=== PATIENT | female | born 1990 | race Caucasian/White ===

== ENCOUNTER 2017-08-27 10:30 | Emergency (ER) | payer SELFPAY ==
[~2017-08-27] VITALS: Ht 165.1 cm; Wt 46.3 kg
[~2017-08-27 10:30] MED LIST: AC325T PO; ALB0.5V INH; ALBU17AE23 IH; AZIT-21 PO; AZIT1PAC8 PO; BENZ100C18 PO; CLC500CT PO; DCS100C PO; DIPH50CA33 PO; DOXY-13; FRS325T PO; HYDR1TAB PO; IBP600T1 PO; METH4TAB PO; MULT-241 PO; NAPR-243 PO; PRCD5U PO; PRD20T PO; PREN1TAB39 PO; SLMFT1E INH; SULF1TAB38 PO; TRAM-21
[2017-08-27] MEDS ORDERED: D-ME118S33 PO (11:05)
--- NOTE | 2017-08-27 11:05 | ED General ---
General Chief Complaint: Cough/Cold/Flu Symptoms Stated Complaint: FEVER,CHILLS,LAMB,COUGH Source of Information: Patient Exam Limitations: No Limitations History of Present Illness Date Seen by Provider: Aug 27, 2017 Time Seen by Provider: 11:02 Initial Comments Ambulatory to ER with fever, chills, headache, cough, body aches 4 days. Timing/Duration: 3-4 Days Severity: Moderate Associated Systoms: Cough, Fever/Chills, Headaches, Malaise Allergies and Home Medications Allergies Coded Allergies: Penicillins (Verified Allergy, Unknown, RASH, 09/01/07) Sulfa (Sulfonamide Antibiotics) (Verified Allergy, Unknown, HIVES, 12/22/14 ) Home Medications Naproxen 500 Mg Tablet, 1 EACH PO BID PRN for PAIN, #20 Ref 0 FOR PAIN Prescribed by: JACKY GRANADOS on 12/22/14 1220 Constitutional: see HPI, chills, fever, malaise EENTM: see HPI Respiratory: see HPI, cough Cardiovascular: no symptoms reported Genitourinary: no symptoms reported Musculoskeletal: no symptoms reported Skin: no symptoms reported Psychiatric/Neurological: No Symptoms Reported Past Xkoupla-Hmszzf-Adbmso Hx Patient Social History Recent Foreign Travel: No Contact w/Someone Who Travel: No Seasonal Allergies Seasonal Allergies: Yes Respiratory Respiratory Disorders: Asthma Reproductive System Hx Reproductive Disorders: No Musculoskeletal Musculoskeletal Disorders: Chronic Back Pain Family Medical History Significant Family History: No Pertinent Family Hx Physical Exam Vital Signs Capillary Refill : General Appearance: No Apparent Distress, WD/WN, Thin, Other (multiple eroded teeth down to the gums,) Eyes: Bilateral Eye Normal Inspection, Bilateral Eye PERRL HEENT: PERRL/EOMI, TMs Normal, Normal ENT Inspection Neck: Full Range of Motion, Normal Inspection Respiratory: Normal Breath Sounds, No Accessory Muscle Use, No Respiratory Distress, Other (lungs are clear and there is no respiratory distress) Cardiovascular: Normal Peripheral Pulses, Tachycardia (she is tachycardic at 130 regular, however, blood pressure is adequate at 130/86 and she is febrile) Gastrointestinal: Normal Bowel Sounds, Non Tender, Soft Extremity: Normal Capillary Refill, Normal Inspection Neurologic/Psychiatric: Alert, Oriented x3, No Motor/Sensory Deficits Progress/Results/Core Measures Suspected Sepsis SIRS Temperature: Pulse: Respiratory Rate: Blood Pressure / Mean: Results/Orders My Orders Orders - AMOL NAZARIO APRN Ibuprofen Tablet (Motrin Tablet) (08/27/17 11:15) Vital Signs/I&O Capillary Refill : Departure Impression Impression: Primary Impression: Influenza Disposition: 01 HOME, SELF-CARE Condition: Stable Departure-Patient Inst. Decision time for Depature: 11:04 Referrals: NO,LOCAL PHYSICIAN (PCP/Family) Primary Care Physician Patient Instructions: Flu Add. Discharge Instructions: 1. Tylenol and Motrin for fevers 2. Return to ER for any worsening symptoms, shortness of breath or any other concerns 3. Follow-up with her doctor within 48 hours for recheck Scripts D-Methorphan Hb/P-Epd HCl/Bpm (Bromfed Dm Cough Syrup) 118 Ml Syrup 5 ML PO Q6H, #120 ML Prov: AMOL NAZARIO APRN 08/27/17 AMOL NAZARIO APRN Aug 27, 2017 11:05
[2017-08-27] MEDS ORDERED: IBUPROFEN 800 MG (MOTRIN) TAB PO ONE (11:15)
[2017-08-27 11:18] VITALS: BP 115/74
--- OUTSIDE RECORDS SUMMARY | 2017-08-28 14:52 | XMS REPORT | Continuity of Care Document ---
Author Author [facility] Organization [facility] Address Unknown Phone Unavailable Allergies Active Description Code Type Severity Reaction Onset Reported/Identified Relationship to Patient Clinical Status Yes Penicillins [id number] Drug Allergy Unknown RASH 09/01/2007 Yes Sulfa (Sulfonamide Antibiotics) [id number] Drug Allergy Unknown HIVES 12/22 Medications There is no data. Problems Date Dx Coded Attending Type Code Diagnosis Diagnosed By 03/15/2011 Ot 682.2 08/21/2011 Ot 305.20 08/21/2011 Ot 465.9 08/21/2011 Ot 493.92 08/21/2011 Ot 599.0 08/21/2011 Ot 646.63 08/21/2011 Ot 648.43 08/21/2011 Ot 648.93 08/21/2011 Ot 649.03 12/15/2011 Ot 644.13 12/18/2011 Ot 285.1 12/18/2011 Ot 285.9 12/18/2011 Ot 493.90 12/18/2011 Ot 648.21 12/18/2011 Ot 648.22 12/18/2011 Ot 648.91 12/18/2011 Ot 649.01 12/18/2011 Ot V02.51 12/18/2011 Ot V27.0 04/20/2012 Ot 708.0 Procedures There is no data. Results There is no data. Encounters ACCT No. Visit Date/Time Discharge Status Pt. Type Provider Facility Loc./Unit Complaint [id number] 12/22/2014 11:43:00 12/22/2014 12:46:00 DIS Emergency JACKY HU [facility] ER [id number] 11/16/2012 13:41:00 11/16/2012 23:59:59 CLS Outpatient [id number] 12/22/2014 11:44:00 Document Registration [id number] 12/22/2014 11:44:00 Document Registration [id number] 04/20/2012 15:33:00 Document Registration [id number] 12/15/2011 01:48:00 Document Registration [id number] 08/21/2011 04:20:00 Document Registration [id number] 03/15/2011 10:37:00 Document Registration
--- OUTSIDE RECORDS SUMMARY | 2017-08-28 14:52 | XMS REPORT | Clinical Summary ---
Author Author [facility] Organization [facility] Address Unknown Phone Unavailable Care Team Providers Care Biological Science Technician Fish Name Role Phone Self, Referral PCP Unavailable Leora Franco RN Unavailable Unavailable Source Comments Some departments are not documenting in the electronic medical record. If you do not see the information that you expected, contact Release of Information in the Health Information Management department at [phone] for further assistance in locating additional records.[facility] Allergies Active Allergy Reactions Severity Noted Date Comments Penicillins 10/31/2007 Current Medications Prescription Sig. Disp. Refills Start End Date Status Date hydrocodone-ibuprofen Active (VICOPROFEN) 5-200 mg per tablet Active Problems Not on file Social History Tobacco Use Types Packs/Day Years Used Date Current Every Day Smoker 0.5 7.0 Alcohol Use Drinks/Week oz/Week Comments No Sex Assigned at Date Recorded Not on file Last Filed Vital Signs Vital Sign Reading Time Taken Blood Pressure 119/54 10/31/2007 3:09 PM CDT Pulse 68 10/31/2007 3:09 PM CDT Temperature 37.1 C (98.8 F) 10/31/2007 3:09 PM CDT Respiratory Rate - - Oxygen Saturation 98% 10/31/2007 3:09 PM CDT Inhaled Oxygen - - Concentration Weight - - Height - - Body Mass Index - - Plan of Treatment Health Maintenance Due Date Last Done Comments PHYSICAL (COMPREHENSIVE) 1996 EXAM PERTUSSIS VACCINE 2000 TETANUS VACCINE 2006 CERVICAL CANCER SCREENING 2010 INFLUENZA VACCINE 02/10/2017 HPV VACCINES Aged Out No longer eligible based on patient's age to complete this topic Results Not on filefrom Last 3 Months
== END 2017-08-27 11:18 | disposition home or self-care (01) ==
LOC: EDUNIT# 10:30 → ER 10:33
DX: J11.1 Influenza due to unidentified influenza virus with other respiratory manifestations (principal); J45.909 Unspecified asthma, uncomplicated; Z88.0 Allergy status to penicillin; Z88.2 Allergy status to sulfonamides
CPT/HCPCS: 99283

== ENCOUNTER 2019-05-21 07:56 | Inpatient (IN) | payer SELFPAY ==
[~2019-05-21] VITALS: Ht 165.1 cm; Wt 51.4 kg
[~2019-05-21 07:56] MED LIST changes: +D-ME118S33 PO
[2019-05-21] MEDS ORDERED: LACTATED RINGERS 1,000 ML IV ONE ×3 (08:50→08:54)
[2019-05-21 09:06] LABS: BASOPHILS % (AUTO) 0 % (0-10); EOSINOPHILS # (AUTO) 0.2 10^3/uL (0.0-0.3); EOSINOPHILS % (AUTO) 1 % (0-10); HEMATOCRIT 36 % (35-52); HEMOGLOBIN 12.1 G/DL (11.5-16.0); LYMPHOCYTES # (AUTO) 0.9 X 10^3 (1.0-4.0); LYMPHOCYTES % (AUTO) 4 % (12-44); MEAN CORPUSCULAR HEMOGLOBIN 29 PG (25-34); MEAN CORPUSCULAR HGB CONC 33 G/DL (32-36); MEAN CORPUSCULAR VOLUME 86 FL (80-99); MEAN PLATELET VOLUME 9.8 FL (7.4-10.4); MONOCYTES # (AUTO) 0.8 X 10^3 (0.0-1.0); MONOCYTES % (AUTO) 3 % (0-12); NEUTROPHILS # (AUTO) 22.7 X 10^3 (1.8-7.8); NEUTROPHILS % (AUTO) 92 % (42-75); PLATELET COUNT 218 10^3/uL (130-400); RED CELL DISTRIBUTION WIDTH 12.7 % (10.0-14.5); WHITE BLOOD COUNT 24.6 10^3/uL (4.3-11.0)
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
[2019-05-21 09:21] LABS: ALANINE AMINOTRANSFERASE 31 U/L (0-55); ALBUMIN 3.6 GM/DL (3.2-4.5); ALKALINE PHOSPHATASE 78 U/L (40-136); BILIRUBIN,TOTAL 0.4 MG/DL (0.1-1.0); BUN/CREATININE RATIO 14; CALCIUM 8.8 MG/DL (8.5-10.1); CARBON DIOXIDE 23 MMOL/L (21-32); CHLORIDE 101 MMOL/L (98-107); CREATININE SERUM 0.81 MG/DL (0.60-1.30); GFR ESTIMATED > 60; GLUCOSE 117 MG/DL (70-105); POTASSIUM 3.1 MMOL/L (3.6-5.0); SODIUM 135 MMOL/L (135-145); TOTAL PROTEIN 6.1 GM/DL (6.4-8.2)
[2019-05-21 09:22] LABS: INR 1.5 (0.8-1.4); PROTHROMBIN TIME PATIENT 18.8 SEC (12.2-14.7)
[2019-05-21 09:59] LABS: BAND NEUTROPHILS 5 %; LYMPHOCYTES % (MANUAL) 7 %; MONOCYTES % (MANUAL) 2 %; NEUTROPHILS % (MANUAL) 84 %; RBC MORPH NORMAL; REACTIVE LYMPHOCYTES 2 %
[2019-05-21] MEDS ORDERED: NS 100 ML (IVPB) BAG IV ONE (10:00)
[2019-05-21] MEDS ORDERED: IOHEXOL 350 MG/ML 100 ML (OMNIPAQUE 350) VIAL IV ONE (10:00)
[2019-05-21] MEDS ORDERED: CATHETER FLUSH 10 ML SYR IV PRN (10:00)
[2019-05-21] MEDS ORDERED: HOLD METFORMIN - RECEIVED CONTRAST 20 ML VIAL IV SCH (10:00)
--- NOTE | 2019-05-21 10:02 | Diagnostic Imaging Report ---
INDICATION: Cough, right lung pain. TECHNIQUE: Two view chest 9:35 AM CORRELATION STUDY: 01/09/2009 FINDINGS: The heart size, mediastinal configuration and pulmonary vasculature are within normal limits. There is rather extensive consolidation at the basilar aspect of the right upper lobe most compatible with pneumonia. There is a slightly rounded density at the apex of this consolidation centrally. The remaining lung [place] relatively clear. Leftward curvature and/or rotation thoracic spine. IMPRESSION: 1. Significant consolidation at the basilar right upper lobe, most suggestive for pneumonia. Follow-up imaging to complete resolution is recommended. Dictated by: Dictated on workstation # [id number]
[2019-05-21 10:37] LABS: BILIRUBIN,URINE NEGATIVE (NEGATIVE); CLARITY,URINE CLEAR; COLOR,URINE YELLOW; GLUCOSE, URINE (UA) NEGATIVE (NEGATIVE); KETONES,URINE NEGATIVE (NEGATIVE); LEUKOCYTE ESTERASE ,URINE NEGATIVE (NEGATIVE); NITRITE,URINE NEGATIVE (NEGATIVE); PROTEIN,URINE NEGATIVE (NEGATIVE)
--- NOTE | 2019-05-21 10:48 | Diagnostic Imaging Report ---
PROCEDURE: CT chest, abdomen, and pelvis with contrast. TECHNIQUE: Multiple contiguous axial images were obtained through the chest, abdomen, and pelvis after the administration of intravenous contrast. Auto Exposure Controls were utilized during the CT exam to meet ALARA standards for radiation dose reduction. INDICATION: Cough, right-sided pain. COMPARISON: Chest radiograph of 05/21/2019 FINDINGS: CT CHEST: CT confirms the right upper lobe consolidation seen on recent chest rated graft. No intraluminal nodule within the trachea. No pleural effusion or pneumothorax. Thyroid is normal. No supraclavicular or axillary lymphadenopathy. There are a few borderline enlarged mediastinal and right hilar lymph nodes that are likely reactive in nature due to right upper lobe pneumonia. No additional lymphadenopathy. Heart is normal in size. Normal caliber thoracic aorta. No worrisome focal osseous lesions. CT ABDOMEN AND PELVIS: No free intraperitoneal air or fluid. The liver, spleen and pancreas are normal. No adrenal mass. Kidneys enhance symmetrically without mass lesion or obstruction. IUD is present within the uterus and appears appropriate in position. The uterus and ovaries are otherwise normal. Urinary bladder is normal. No bowel obstruction or pericolonic inflammation. Normal caliber abdominal aorta. No abdominal or pelvic lymphadenopathy. No worrisome focal osseous lesions. IMPRESSION: CHEST: 1. CT confirms radiograph findings of right upper lobe pneumonia. Advise followup PA and lateral chest radiographs in 4 weeks after appropriate medical management to ensure resolution. 2. No additional abnormality in the chest. ABDOMEN AND PELVIS: 2. No acute process in abdomen and pelvis. Dictated by: Dictated on workstation # [id number]
[2019-05-21] MEDS ORDERED: CEFEPIME INJECTION 2,000 MG in WATER (STERILE) FOR INJECTION 20 ML IV ONE (11:15)
[2019-05-21 11:16] LABS: AMPHETAMINE SCREEN, URINE POSITIVE (NEGATIVE); BARBITURATE SCREEN URINE NEGATIVE (NEGATIVE); BENZODIAZEPINES SCREEN URINE NEGATIVE (NEGATIVE); CANNABINOID SCREEN, URINE NEGATIVE (NEGATIVE); COCAINE SCREEN URINE NEGATIVE (NEGATIVE); METHADONE STAT NEGATIVE (NEGATIVE); METHAMPHETAMINE SCREEN URINE S POSITIVE (NEGATIVE); OPIATE SCREEN URINE NEGATIVE (NEGATIVE); OXYCODONE STAT NEGATIVE (NEGATIVE); PROPOXYPHENE STAT NEGATIVE (NEGATIVE); TRICYCLIC ANTIDEPRESSANTS SCRE NEGATIVE (NEGATIVE)
[2019-05-21 11:53] LABS: BACTERIA,URINE TRACE /HPF
--- NOTE | 2019-05-21 12:10 | NUR ---
ELIE LAWRENCE admitted to room 416-1, with an admitting diagnosis of PNEUMONIA, on 05/21/19 from ED via , accompanied by STAFF. ELIE LAWRENCE introduced to surroundings, call light, bed controls, phone, TV, temperature control, lights, meal times, smoking policy, visitor policy, side rail policy, bathrooms and showers. Patient Rights given to patient in the handbook. ELIE LAWRENCE verbalizes understanding that [facility] is not responsible for the loss or damage to any personal effects or valuables that are kept in the patients posession during their hospitalization. The following Patient Care Plans were discussed with the PT: Discharge Planning, PAIN, AND PNEUMONIA. ELIE LAWRENCE verbalizes understanding of Interdisciplinary Patient Education. Patient and/or family were informed about the Rapid Response Team and its purpose.
[2019-05-21 13:33] VITALS: BP 99/58
[2019-05-21] MEDS ORDERED: ACETAMINOPHEN 325 MG TABLET ONE (13:45)
[2019-05-21] MEDS ORDERED: NS IV 1000 ML 1,000 ML ONE (13:45)
--- NOTE | 2019-05-21 13:50 | NUR ---
TYLENOL 650MG PO FOR PAIN.
[2019-05-21] MEDS: NS IV 1000 ML 1,000 ML IV SCH (13:51)
[2019-05-21] MEDS: ACETAMINOPHEN 325 MG TABLET PO PRN ×2 (13:52→20:47)
[2019-05-21] MEDS ORDERED: VANCOMYCIN 1 GM/NS 250 ML IVPB IV NR ×2 (13:54)
[2019-05-21] MEDS ORDERED: ONDANSETRON 4 MG/2 ML (SDV) Z0FRAN IVP PRN (14:00)
[2019-05-21] MEDS ORDERED: ACETAMINOPHEN 650 MG SUPP (TYLENOL) PR PRN (14:00)
[2019-05-21] MEDS ORDERED: KETOROLAC 15 MG/ML VIAL IVP PRN (14:00)
--- NOTE | 2019-05-21 14:25 | History & Physical-Hospitalist ---
History of Present Illness HPI/Chief Complaint Pt is a 28yoCF with no known medical history who presents to the ER due fever, chiils and lung pain, She states that this started 3 days ago. She has had similar symptoms with previous pneumonia. She is unsure if she had a fever but she knew that she was sweating and chilling so presumes that she did. She did not have a cough and denies any sick contacts. She has not tried anything for this at home. She presented today because her symptoms have not gotten better after 3 days. In the emergency room she was found to have a right-sided pneumonia, white blood cell count of 24,000, and to be tachycardic at 127. She was admitted for sepsis and for IV antibiotics. Source: patient Exam Limitations: no limitations Date Seen 05/21/19 Time Seen by a Provider: 14:19 Attending Physician Jared Garcia MD PCP No,Local Physician Referring Physician Date of Admission May 21, 2019 at 11:35 Home Medications & Allergies Home Medications Reviewed patient Home Medication Reconciliation performed by pharmacy medication reconciliations nanotechnician and/or nursing. Patients Allergies have been reviewed. Allergies Allergies Coded Allergies Penicillins (Verified Allergy, Unknown, RASH, 09/01/07) Sulfa (Sulfonamide Antibiotics) (Verified Allergy, Unknown, HIVES, 12/22/14) Past Qcttvcz-Uapcmo-Jeboxv Hx Past Med/Social Hx: Reviewed Nursing Past Med/Soc Hx Patient Social History Marrital Status: Alcohol Use: Past History Drug of Choice: denies use- UDS positive for meth Smoking Status: Current Everyday Smoker Cigaretts per day: 10 Type Used: Cigarettes Recent Foreign Travel: No Contact w/other who traveled: No Recent Hopitalizations: No Recent Infectious Disease Expo: No Immunizations Up To Date Tetanus Booster (TDap): Unknown Pediatric: Yes Seasonal Allergies Seasonal Allergies: Yes Past Medical History Reproductive: No Musculoskeletal: Chronic Back Pain History of Blood Disorders: Yes (PT DENIES BUT HISTORY SHOWED YES) Family History Reviewed Nursing Family Hx No Pertinent Family Hx Review of Systems Constitutional: chills, diaphoresis, fever EENTM: no symptoms reported Respiratory: cough; No hemoptysis; short of breath; No wheezing Cardiovascular: chest pain; No edema, No Hx of Intervention Gastrointestinal: No abdominal pain; loss of appetite; No nausea, No vomiting Genitourinary: no symptoms reported Musculoskeletal: no symptoms reported Skin: no symptoms reported Psychiatric/Neurological: No Symptoms Reported Physical Exam Physical Exam Vital Signs Vital Signs - First Documented 05/21/19 08:04 Temp 36.7 Pulse 127 Resp 20 B/P (MAP) 86/55 (65) Pulse Ox 98 O2 Delivery Room Air Capillary Refill : Less Than 3 Seconds Height, Weight, BMI Height: 5'5.00" Weight: 102lbs. oz. 46.027327wd; 18.26 BMI Method:Stated General Appearance: No Apparent Distress, Chronically ill, Thin HEENT: Other (poor dentition) Neck: Supple; No Thyromegaly Respiratory: No Respiratory Distress, Crackles (right lung) Cardiovascular: Regular Rate, Rhythm, No Murmur Gastrointestinal: Normal Bowel Sounds, Non Tender, Soft Extremity: No Calf Tenderness, No Pedal Edema Neurologic/Psychiatric: Alert, Oriented x3, Normal Mood/Affect Skin: No Mottled; Tattoos/Piercings Results Results/Procedures Labs Laboratory Tests 05/21/19 08:23 Patient resulted labs reviewed. Imaging: Reviewed Imaging Report Assessment/Plan Admission Diagnosis Sepsis due to CAP Admission Status: Inpatient Order (span 2 midnights) Reason for Inpatient Admission: IV abx, high riisk of decompensation, will need more than two midnights to stabilize for DC Assessment and Plan Sepsis CAP Leukocytosis and tachycardia with PNA Lactic acid normal Vanc and Cefepime Cultures pending Pulm consulted, appreciate recs Hypokalemia Will replace Tobacco abuse Substance Abuse recommended smoking cessation Denies use but UDS positive for meth Diagnosis/Problems Diagnosis/Problems (1) Acute sepsis Status: Acute (2) Right middle lobe pneumonia Status: Acute Qualifiers: Pneumonia type: due to unspecified organism Qualified Codes: J18.1 - Lobar pneumonia, unspecified organism (3) Tobacco abuse (4) Methamphetamine use (5) Poor dentition Status: Acute Clinical Quality Measures DVT/VTE Risk/Contraindication: Risk Factor Score Per Nursin RFS Level Per Nursing on Admit: 2=Moderate JARED GARCIA MD May 21, 2019 2:25 pm POS
[2019-05-21] MEDS ORDERED: KCL 20 MEQ TAB (K-DUR) PO ONE (14:30)
[2019-05-21] MEDS ORDERED: ANTACID SUSP 30 ML UDC (MYLANTA) PO PRN (14:45)
[2019-05-21] MEDS ORDERED: ONDANSETRON 4 MG/2 ML (SDV) Z0FRAN IV PRN (14:45)
[2019-05-21] MEDS ORDERED: MILK OF MAGNESIA 400 MG/5 ML 30 ML UDC PO PRN (14:45)
[2019-05-21] MEDS ORDERED: MELATONIN 3 MG TABLET PO PRN (14:45)
[2019-05-21] MEDS ORDERED: ACETAMINOPHEN 325 MG TABLET PO PRN (14:45)
[2019-05-21] MEDS: BENZONATATE 100 MG (TESSALON) CAPSULE PO PRN (15:37)
--- NOTE | 2019-05-21 15:39 | NUR ---
MARIAH WILSON FOR COUGH.
[2019-05-21 16:20] VITALS: BP 93/53
[2019-05-21 19:20] VITALS: BP 97/58
[2019-05-21 23:46] VITALS: BP 89/56
[2019-05-22] MEDS: NS IV 1000 ML 1,000 ML IV SCH ×2 (02:51→15:28)
[2019-05-22 03:30] VITALS: BP 96/73
--- NOTE | 2019-05-22 05:36 | NUR ---
PT REFUSED MORNING LAB DRAW AT THIS TIME. PT STATES "THEY POKED ME 6 TIMES YESTERDAY, YOU AREN'T GOING TO DO IT TODAY." PT REASSURED THAT ALL SHE HAD TO DO WAS TELL US, "NO." AND WE WOULDN'T HAVE TO DRAW THE LABS. PT STATES, "NO."
[2019-05-22 08:00] VITALS: BP 99/56
--- NOTE | 2019-05-22 08:58 | NUR ---
PT AND MALE FRIEND AT BEDSIDE BECAME VERY RUDE AND VERBALLY INAPPROPRIATE WITH INITIAL ASSESSMENT. YELLING THAT SHE DID NOT NEED AM LABS DONE. THIS MANAGER INTERN DID NOT EVEN MENTION AM LABS. INFORMED BOTH PT AND FRIEND THAT SHE HAD ALREADY REFUSED LABS AND THAT WAS AWARE. REQUESTING IV OUT. INFORMED THAT STILL RECEIVING IV ABX AND THAT SHE COULD DISCUSS WITH
[2019-05-22] MEDS: BENZONATATE 100 MG (TESSALON) CAPSULE PO PRN (09:59)
--- NOTE | 2019-05-22 10:00 | NUR ---
TESSALON PERLE PO FOR COUGH.
--- NOTE | 2019-05-22 11:15 | NUR ---
TYLENOL 650MG PO FOR GENERAL DISCOMFORT.
[2019-05-22] MEDS: ACETAMINOPHEN 325 MG TABLET PO PRN (11:28)
[2019-05-22 11:55] VITALS: BP 100/62
--- NOTE | 2019-05-22 12:54 | Progress Note - Hospitalist ---
Subjective HPI/CC On Admission Date Seen by Provider: May 22, 2019 Time Seen by Provider: 12:51 Pt is a 28yoCF with no known medical history who presents to the ER due fever, chiils and lung pain, She states that this started 3 days ago. She has had similar symptoms with previous pneumonia. She is unsure if she had a fever but she knew that she was sweating and chilling so presumes that she did. She did not have a cough and denies any sick contacts. She has not tried anything for this at home. She presented today because her symptoms have not gotten better after 3 days. In the emergency room she was found to have a right-sided pneumonia, white blood cell count of 24,000, and to be tachycardic at 127. She was admitted for sepsis and for IV antibiotics. Subjective/Events-last exam Pt reports feeling better. Requesting to take a shower and walk the halls. informed her both were fine but she could not leave the floor. Focused Exam Lactate Level 05/21/19 08:23: Lactic Acid Level 1.64 Objective Exam Vital Signs Vital Signs Date Time Temp Pulse Resp B/P (MAP) Pulse Ox O2 Delivery O2 Flow Rate FiO2 05/22/19 11:55 37.6 92 20 100/62 (75) 100 Room Air Capillary Refill : Less Than 3 SecondsLess Than 3 Seconds General Appearance: No Apparent Distress, Thin HEENT: Other (poor dentition) Respiratory: No Accessory Muscle Use, No Respiratory Distress, Crackles Cardiovascular: Regular Rate, Rhythm, No Murmur Neurologic/Psychiatric: Alert, Oriented x3 Skin: Tattoos/Piercings Results/Procedures Lab Patient resulted labs reviewed. Imaging: Reviewed Imaging Report Assessment/Plan Assessment and Plan Assess & Plan/Chief Complaint Sepsis CAP Continue Vanc and Cefepime last fever last night Cultures pending Pulm consulted, appreciate recs flu negative Hypokalemia Replaced yesteday, refused lab draw this AM Tobacco abuse Substance Abuse recommended smoking cessation Denies use but UDS positive for meth Diagnosis/Problems Diagnosis/Problems (1) Acute sepsis Status: Acute (2) Right middle lobe pneumonia Status: Acute Qualifiers: Pneumonia type: due to unspecified organism Qualified Codes: J18.1 - Lobar pneumonia, unspecified organism (3) Tobacco abuse (4) Methamphetamine use (5) Poor dentition Status: Acute Clinical Quality Measures DVT/VTE Risk/Contraindication: Risk Factor Score Per Nursin RFS Level Per Nursing on Admit: 2=Moderate JARED COONEY MD May 22, 2019 12:54 pm POS
[2019-05-22] MEDS ORDERED: VANCOMYCIN 750 MG/NS 250 ML IVPB IV SCH ×2 (14:00)
[2019-05-22 16:55] VITALS: BP 106/67
[2019-05-22 19:37] VITALS: BP 100/62
[2019-05-23 00:35] VITALS: BP 110/70
[2019-05-23 04:16] VITALS: BP 111/65
[2019-05-23 05:28] LABS: HEMOGLOBIN 10.9 G/DL (11.5-16.0); MEAN PLATELET VOLUME 10.1 FL (7.4-10.4); RED CELL DISTRIBUTION WIDTH 12.9 % (10.0-14.5); WHITE BLOOD COUNT 10.8 10^3/uL (4.3-11.0)
[2019-05-23 05:44] LABS: INR 1.1 (0.8-1.4); PROTHROMBIN TIME PATIENT 14.2 SEC (12.2-14.7)
[2019-05-23 05:54] LABS: BUN/CREATININE RATIO 13; CALCIUM 8.2 MG/DL (8.5-10.1); CARBON DIOXIDE 21 MMOL/L (21-32); CHLORIDE 109 MMOL/L (98-107); GFR ESTIMATED > 60; GLUCOSE 96 MG/DL (70-105); POTASSIUM 3.7 MMOL/L (3.6-5.0); SODIUM 139 MMOL/L (135-145)
[2019-05-23] MEDS: NS IV 1000 ML 1,000 ML IV SCH (06:26)
--- NOTE | 2019-05-23 07:48 | Pulmonary Consultation ---
History of Present Illness History of Present Illness Date of Consultation 05/23/19 07:44 Date of Admission Allergies and Home Medications Allergies Coded Allergies: Penicillins (Verified Allergy, Unknown, RASH, 09/01/07) Sulfa (Sulfonamide Antibiotics) (Verified Allergy, Unknown, HIVES, 12/22/14) Home Medications D-Methorphan Hb/P-Epd HCl/Bpm 118 Ml Syrup, 5 ML PO Q6H Prescribed by: AMOL NAZARIO on 08/27/17 1105 Naproxen 500 Mg Tablet, 1 EACH PO BID PRN for PAIN FOR PAIN Prescribed by: JACKY GRANADOS on 12/22/14 1220 Past Fdcexyk-Vaqaca-Wzheqk Hx Past Med/Social Hx: Reviewed Nursing Past Med/Soc Hx Patient Social History Alcohol Use: Past History Recreational Drug Use: Yes Drug of Choice: denies use- UDS positive for meth Smoking Status: Current Everyday Smoker Type Used: Cigarettes Recent Foreign Travel: No Contact w/Someone Who Travel: No Recent Infectious Disease Expo: No Recent Hopitalizations: No Physical Abuse: No Sexual Abuse: No Mistreated: No Fear: No Immunizations Up To Date Tetanus Booster (TDap): Unknown PED Vaccines UTD: Yes Seasonal Allergies Seasonal Allergies: Yes Past Medical History Surgeries: No Respiratory: Yes Asthma Cardiac: No Neurological: No Reproductive Disorders: No Genitourinary: No Gastrointestinal: No Musculoskeletal: Yes Chronic Back Pain Endocrine: No HEENT: No Cancer: No Psychosocial: No Integumentary: No Blood Disorders: Yes (PT DENIES BUT HISTORY SHOWED YES) Family Medical History Reviewed Nursing Family Hx No Pertinent Family Hx Sepsis Event Evaluation Height, Weight, BMI Height: 5'5.00" Weight: 102lbs. oz. 46.075833qt; 18.26 BMI Method:Stated Exam Exam Vital Signs Date Time Temp Pulse Resp B/P (MAP) Pulse Ox O2 Delivery O2 Flow Rate FiO2 05/23/19 04:16 37.2 92 20 111/65 (80) 98 Room Air 05/23/19 00:35 36.9 77 18 110/70 (83) 98 Room Air 05/22/19 20:00 Room Air 05/22/19 19:37 37.8 89 20 100/62 (75) 98 Room Air 05/22/19 16:55 37.4 92 16 106/67 (80) 99 Room Air 05/22/19 11:55 37.6 92 20 100/62 (75) 100 Room Air 05/22/19 08:00 Room Air 05/22/19 08:00 37.6 85 18 99/56 (70) 98 Room Air I & O 05/23/19 07:00 Intake Total 4427.5 ml Balance 4427.5 ml Height & Weight Height: 5'5.00" Weight: 102lbs. oz. 46.906552ne; 18.26 BMI Method:Stated General Appearance: No Apparent Distress, Thin HEENT: Other (poor dentition) Neck: Supple; No Thyromegaly Respiratory: No Accessory Muscle Use, No Respiratory Distress, Crackles Cardiovascular: Regular Rate, Rhythm, No Murmur Capillary Refill: Less Than 3 Seconds Extremity: No Calf Tenderness, No Pedal Edema Neurologic/Psychiatric: Alert, Oriented x3 Skin: Tattoos/Piercings Lymphatic: No Adenopathy Results Lab Laboratory Tests 05/21/19 08:23 05/23/19 04:50 Assessment/Plan Assessment/Plan Sepsis - improving CAP -Change Abx to Omnicef -Repeat CXR today -Will also need CXR in 6-8wks after discharge to ensure complete resolution. -Flu negative Tobacco abuse Substance Abuse -Methamphetamine is positive JOSE ANTONIO HULL DO May 23, 2019 07:48 POS
[2019-05-23 08:00] VITALS: BP 108/67
--- NOTE | 2019-05-23 08:38 | Diagnostic Imaging Report ---
INDICATION: Shortness of breath. COMPARISON: 05/21/2019. TECHNIQUE: Single frontal radiograph of the chest dated 05/23/2019. FINDINGS: The cardiac silhouette is within normal limits in size. No significant pulmonary vascular congestion. The left lung is clear. Dense focal airspace opacity is noted within the right upper lobe, stable from the prior examination. Very minimal right basilar interstitial opacities are present. No significant pleural effusion. No pneumothorax. No acute osseous abnormality. IMPRESSION: Right upper lobe pneumonia. Developing minimal right basilar atelectasis and/or pneumonitis. Recommend followup radiographs 10-14 days after appropriate therapy to ensure resolution. Dictated by: Dictated on workstation # [id number]
[2019-05-23] MEDS ORDERED: IBUP-2185 PO (08:51)
--- NOTE | 2019-05-23 08:52 | NUR ---
SPOKE WITH PT WELL CALLING [facility] TO COMPLETE THE MED REC. PT STATES SHE DOES NOT TAKE ANY PRESCRIPTION MEDICATION. OTC MEDS: IBUPROFEN 200MG
[2019-05-23] MEDS ORDERED: CEFDINIR 300 MG (OMNICEF) CAP PO SCH (09:00)
[2019-05-23] MEDS ORDERED: CEFD300C3 PO (09:45)
--- NOTE | 2019-05-23 12:36 | Discharge Summary ---
Discharge Summary Hospital Course Problems/Dx: (1) Right middle lobe pneumonia Status: Acute Qualifiers: Qualified Codes: J18.1 - Lobar pneumonia, unspecified organism (2) Acute sepsis Status: Resolved (3) Tobacco abuse Status: Chronic (4) Methamphetamine use Status: Chronic (5) Poor dentition Status: Chronic Hospital Course Date of Admission: May 21, 2019 at 11:35 Admission Diagnosis : Sepsis due to pneumonia Family Physician/Provider: KatieLocal Physician Date of Discharge: 05/23/19 Discharge Diagnosis: Sepsis due to pneumonia Hospital Course: Gabriel Mahoney is a 28yoF who was admitted with sepsis due to pneumonia. She responded well to IV antibiotics. She was transitioned to oral antibiotics and w as discharged home. She is a chronic methamphetamine abuser and cigarette smoker and cessation was recommended. Labs and Pending Lab Test: Laboratory Tests 05/23/19 04:50: White Blood Count 10.8, Red Blood Count 3.82L, Hemoglobin 10.9L, Hematocrit 33L, Mean Corpuscular Volume 87, Mean Corpuscular Hemoglobin 29, Mean Corpuscular Hemoglobin Concent 33, Red Cell Distribution Width 12.9, Platelet Count 233, Maddie n Platelet Volume 10.1, Prothrombin Time 14.2, INR Comment 1.1, Sodium Level 139, Potassium Level 3.7, Chloride Level 109H, Carbon Dioxide Level 21, Anion Gap 9, Blood Urea Nitrogen 8, Creatinine 0.60, Estimat Glomerular Filtration Rat e > 60, BUN/Creatinine Ratio 13, Glucose Level 96, Calcium Level 8.2L, Magnesium Level 1.7 Microbiology 05/21/19 Blood Culture - Preliminary, Resulted No growth 05/21/19 Influenza Types A,B Antigen (CINDY) - Final, Complete 05/21/19 Urine Culture - Preliminary, Resulted Culture In Progress Home Meds Active Cefdinir 300 Mg Capsule 300 Mg PO BID 7 Days Reported Ibuprofen 200 Mg Capsule 600 Mg PO Q6H PRN Assessment/Pt Instructions Take medications as prescribed. Establish with primary care doctor. Discharge Planning: <30 minutes discharge planning Discharge Instructions Discharge Diet: No Restrictions Activity as Tolerated: Yes Discharge Physical Examination Vital Signs Vital Signs Date Time Temp Pulse Resp B/P (MAP) Pulse Ox O2 Delivery O2 Flow Rate FiO2 05/23/19 08:00 Room Air 05/23/19 08:00 37.0 110 20 108/67 (81) 99 General Appearance: No Apparent Distress, WD/WN, Other (disheveled) HEENT: PERRL/EOMI, Other (poor dentition) Respiratory: Chest Non Tender, Lungs Clear, No Respiratory Distress Cardiovascular: Regular Rate, Rhythm, No Edema, No Murmur Gastrointestinal: Normal Bowel Sounds, Non Tender, Soft Extremity: Normal Inspection, Non Tender, No Pedal Edema Skin: Normal Color, Warm/Dry Neurologic/Psychiatric: Alert, Oriented x3 Allergies: Coded Allergies: Penicillins (Verified Allergy, Unknown, RASH, 09/01/07) Sulfa (Sulfonamide Antibiotics) (Verified Allergy, Unknown, HIVES, 12/22/14) Discharge Summary Date of Admission May 21, 2019 at 11:35 Date of Discharge May 23, 2019 at 10:30 Discharge Date: May 23, 2019 Discharge Time: 11:00 Admission Diagnosis Sepsis due to CAP Consults/Procedures Consulations Pulmonology Discharge Diagnosis Sepsis due to pneumonia (1) Acute sepsis Status: Resolved (2) Right middle lobe pneumonia Status: Acute Qualifiers: Qualified Codes: J18.1 - Lobar pneumonia, unspecified organism (3) Tobacco abuse Status: Chronic (4) Methamphetamine use Status: Chronic (5) Poor dentition Status: Chronic Clinical Quality Measures DVT/VTE Risk/Contraindication: Risk Factor Score Per Nursin RFS Level Per Nursing on Admit: 2=Moderate MARGARETTE IGNACIO MD May 23, 2019 12:35 POS
[2019-05-24 13:54] LABS: HEPATITIS C ANTIBODY C Non-Reactive (Non-Reactive)
== END 2019-05-23 10:30 | disposition home or self-care (01) | DRG 871 ==
LOC: EDUNIT# 07:56 → ER 07:57 → 4TH 11:35
PROVIDERS: ADMIT Family Medicine; ATTEND Family Medicine
DX: A41.9 Sepsis, unspecified organism (principal); J18.1 Lobar pneumonia, unspecified organism; F17.210 Nicotine dependence, cigarettes, uncomplicated; F15.90 Other stimulant use, unspecified, uncomplicated; E87.6 Hypokalemia; F10.11 Alcohol abuse, in remission; J45.909 Unspecified asthma, uncomplicated; M54.9 Dorsalgia, unspecified; K08.9 Disorder of teeth and supporting structures, unspecified
CPT/HCPCS: 36415; 71045; 71046; 71260; 74177; 80048; 80053; 80074; 80306; 81000; 83605; 83735; 84703; 85007; 85027; 85610; 85730; 87040; 87088; 87804; 96361; 96374